=== PATIENT | female | born 1985 | race African-American/Black ===

== ENCOUNTER 2022-07-07 11:31 | Observation (INO) | payer MEDICAID ==
[~2022-07-07] VITALS: Ht 149.9 cm; Wt 72.6 kg
[2022-07-07 13:49] LABS: CLARITY URINE CLEAR (CLEAR); COLOR URINE YELLOW (YELLOW); KETONES URINE NEGATIVE (NEGATIVE); LEUKOCYTE ESTERASE URINE 2+ (NEGATIVE); NITRITE URINE NEGATIVE (NEGATIVE); OCCULT BLOOD URINE TRACE (NEGATIVE); PH URINE 8.5 (4.5-8.0); PROTEIN URINE NEGATIVE (NEGATIVE)
[2022-07-07] MEDS ORDERED: LACTATED RINGERS 1,000 ML IV SCH (15:25)
[2022-07-07] MEDS ORDERED: CEFAZOLIN 2,000 MG in DEXT 5% WATER 100 ML IV SCH (16:00)
== END 2022-07-07 16:15 | disposition home or self-care (01) ==
LOC: 8 EST LDRP 11:31
PROVIDERS: ADMIT Obstetrics & Gynecology; ATTEND Obstetrics & Gynecology
DX: O26.893 Other specified pregnancy related conditions, third trimester (principal); R10.30 Lower abdominal pain, unspecified; O62.9 Abnormality of forces of labor, unspecified; Z3A.33 33 weeks gestation of pregnancy
CPT/HCPCS: 59025; 76805; 76818; 81003; 87086; 96365; G0378; J0690; J7060; 96360; 99281; G0379

== ENCOUNTER 2022-07-29 10:47 | Observation (INO) | payer MEDICAID ==
[~2022-07-29] VITALS: Ht 149.9 cm; Wt 72.6 kg
[2022-07-29 11:51] LABS: CLARITY URINE CLEAR (CLEAR); COLOR URINE YELLOW (YELLOW); KETONES URINE NEGATIVE (NEGATIVE); LEUKOCYTE ESTERASE URINE 3+ (NEGATIVE); NITRITE URINE NEGATIVE (NEGATIVE); OCCULT BLOOD URINE NEGATIVE (NEGATIVE); PH URINE 6.5 (4.5-8.0); PROTEIN URINE NEGATIVE (NEGATIVE); SPECIFIC GRAVITY URINE 1.014 (1.005-1.030)
== END 2022-07-29 12:35 | disposition left against medical advice (07) ==
LOC: 8 EST LDRP 10:47
PROVIDERS: ADMIT Obstetrics & Gynecology; ATTEND Obstetrics & Gynecology
DX: O99.891 Other specified diseases and conditions complicating pregnancy (principal); M54.50 Low back pain, unspecified; Z3A.36 36 weeks gestation of pregnancy; Z79.899 Other long term (current) drug therapy
CPT/HCPCS: 59025; 81003; 87086; G0378; 99281; G0379